=== PATIENT | male | born 1990 ===

== ENCOUNTER 2016-04-05 10:24 | Day surgery (SDC) | payer OTHER ==
[2016-04-02 11:48] LABS: HEMATOCRIT 41.6 % (37.9-51.0); HEMOGLOBIN 14.4 g/dL (13.5-17.0); HGB HCT DIFFERENCE 1.6; MEAN CORPUSCULAR HEMOGLOBIN 30.8 pg (27.0-33.4); MEAN CORPUSCULAR HGB CONC 34.5 g/dL (32.0-36.0); MEAN CORPUSCULAR VOLUME 89 fl (80-97); RED BLOOD COUNT 4.67 10^6/uL (4.35-5.55); RED CELL DISTRIBUTION WIDTH 12.8 % (11.5-14.0); WHITE BLOOD COUNT 7.7 10^3/uL (4.0-10.5)
[~2016-04-05 10:24] MED LIST: CEFAZOLIN 2 GM/D5W RTU 2 GM/50 ML RTUPB IV PRN; LACTATED RINGERS 1000 ML IV PRN; LIDOCAINE 0.5% INJ-PF (5 MG/ML) 50 ML SDV SUBCUT PRN
[2016-04-05] MEDS ORDERED: NEOSTIGMINE METHYLSULFATE 10 MG/10 ML VIAL ONE (10:26)
[2016-04-05] MEDS ORDERED: ONDANSETRON HCL INJ/PF 4 MG/2 ML SDV ONE (10:26)
[2016-04-05] MEDS ORDERED: GLYCOPYRROLATE INJ 0.4 MG/2 ML VIAL ONE (10:26)
[2016-04-05] MEDS ORDERED: DEXAMETHASONE SOD PHOSPHATE INJ 4 MG/1 ML VIAL ONE (10:26)
[2016-04-05] MEDS ORDERED: LIDOCAINE 2% INJ-PF (20 MG/ML) 10 ML AMPUL ONE ×2 (10:26→16:20)
[2016-04-05] MEDS ORDERED: SUCCINYLCHOLINE CHLORIDE INJ 200 MG/10 ML VIAL ONE (10:26)
[2016-04-05] MEDS ORDERED: KETOROLAC TROMETHAMINE 60 MG/2 ML SDV ONE (10:26)
[2016-04-05] MEDS ORDERED: ROCURONIUM BROMIDE INJ 50 MG/5 ML VIAL IV ONE (10:26)
[2016-04-05] MEDS ORDERED: BUPIVACAINE HCL 0.5 % INJ/PF 30 ML SDV ONE (10:32)
[2016-04-05] MEDS ORDERED: MIDAZOLAM 2 MG/2 ML INJ ONE (11:47)
[2016-04-05] MEDS ORDERED: FENTANYL CITRATE INJ/PF 100 MCG/2 ML AMPUL ONE ×2 (11:47→11:49)
[2016-04-05] MEDS ORDERED: PROPOFOL INJ 200 MG/20 ML VIAL IV ONE (11:48)
[2016-04-05] MEDS ORDERED: ACETAMINOPHEN 100 ML IV ONE (11:48)
[2016-04-05] MEDS ORDERED: DEXMEDETOMIDINE INJ 80 MCG/20 ML VIAL IV ONE (11:48)
[2016-04-05] MEDS ORDERED: MORPHINE SULFATE 10 MG/ML INJ ONE (11:48)
[2016-04-05] MEDS ORDERED: LIDOCAINE 0.5%/EPINEPHRINE INJ 50 ML VIAL ONE (13:37)
[2016-04-05] MEDS ORDERED: BUPIVACAINE HCL 0.25% /EPINEPHRINE INJ/PF 30 ML SDV ONE (13:40)
[2016-04-05] MEDS ORDERED: DIPHENHYDRAMINE HCL 50 MG/ML VIAL IV PRN (15:08)
[2016-04-05] MEDS ORDERED: ONDANSETRON HCL INJ/PF 4 MG/2 ML SDV IV PRN (15:08)
[2016-04-05] MEDS ORDERED: MEPERIDINE HCL/PF INJ 25 MG/1 ML DISP.SYRIN IV PRN (15:08)
[2016-04-05] MEDS ORDERED: FENTANYL CITRATE INJ/PF 100 MCG/2 ML AMPUL IV PRN ×3 (15:08)
[2016-04-05] MEDS ORDERED: RINGERS SOLUTION,LACTATED 1,000 ML IV PRN (15:08)
[2016-04-05] MEDS ORDERED: OXYCODONE-ACETAMINOPHEN 5-325 MG TABLET PO PRN ×3 (15:08)
[2016-04-05] MEDS ORDERED: MORPHINE SULFATE 10 MG/ML INJ IV PRN ×2 (15:08)
[2016-04-05] MEDS ORDERED: PROMETHAZINE HCL INJ 25 MG/1 ML VIAL IV PRN ×2 (15:08)
[2016-04-05] MEDS: HYDROMORPHONE HCL INJ/PF 2 MG/ML AMPULE ONE ×5 (15:17→15:57)
--- NOTE | 2016-04-05 16:04 | OPERATIVE REPORT E ---
Operative Report NAME: CHARLEY BLAKE : 1990 AGE: 25Y DATE OF SURGERY: 04/05/2016 ROOM: PREOPERATIVE DIAGNOSIS: Closed right fracture dislocation of the ankle. POSTOPERATIVE DIAGNOSES: 1. Closed right fracture dislocation of the ankle. 2. Fibular shaft fracture. 3. Syndesmotic disruption. PROCEDURE: 1. Open reduction and internal fixation of the right fibula. 2. Fixation of syndesmosis. SURGEON: RICHARD LAUREN M.D. BLOOD LOSS: Five mL. TOURNIQUET TIME: Seventy-two minutes. ANESTHESIA: General plus local. FINDINGS: There was a comminuted spiral fracture of the fibula. After fixation the syndesmosis was unstable on stress view. IMPLANTS: [place] fibular plate and lag screw and fibular syndesmotic screw. 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 He was closed reduced and splinted. He was seen in the office and we had a lengthy discussion regarding all of his treatment options, both nonsurgical and surgical. Risks, benefits, and alternatives to surgery were discussed with the patient, including but not limited to infection, bleeding, damage to neurovascular structures, deep venous thrombosis, , hardware failure, malunion, nonunion, and need for further surgery in the future. Patient understood all of these risks and elected to proceed with the surgery. PROCEDURE: Patient was seen in the preoperative holding area and the appropriate surgical site was marked. He was then taken to the operating room and laid supine on the operating table. IV antibiotics and general anesthesia were administered at this time. SCDs were placed on the nonoperative leg. A well padded right thigh tourniquet was placed. All of his bony prominences and neurovascular structures were well padded and protected. A time-out was performed to confirm the correct patient, procedure, and surgical site and the limb was then prepped and draped in a sterile fashion. A longitudinal incision was made overlying the fibula. Hemostasis was obtained using electrocautery. Dissection was taken down to the fibula and the periosteum was elevated at the fracture site. The fracture site was exposed and hematoma was removed from the fracture site. There was a long spiral fracture of the fibula with some comminution proximally. At this point, I obtained a provisional reduction using bone reduction clamps. I obtained fluoroscopy images that confirmed good overall alignment and reduction. At this point, I then placed a 3.5 mm lag screw across the fracture site. I removed the clamps and took imaging. This held the fracture nicely reduced and compressed at the fracture site. At this point, I then put a neutralization plate on. The fracture did spiral fairly proximal, so I had to use a long plate to get adequate purchase on both sides of the fracture site. Once adequate fixation was performed, I then took imaging and I did an external rotation stress view. The syndesmosis did widen, so at this point I placed a 3 cortical syndesmotic screw. This held the fibula in a nice anatomic position. I did perform a stress view at this point and there was no syndesmotic widening. At this point, I took the ankle through a range of motion and had excellent range of motion. At this point, I took final fluoroscopic images. I irrigated and closed the periosteum and fascial layer using 0 Vicryl, 2-0 Vicryl for skin, and a 3-0 nylon for skin. A dry sterile dressing was placed and the patient was placed in a posterior mold. The procedure went well without complication. The patient was awoken from anesthesia and transferred to the recovery room in stable condition. I was present for the entirety of the procedure. DICTATING PHYSICIAN: RICHARD LAUREN M.D. [id number] PHY#: [id number] ID: [id number] JOB#: [id number] ACCT: [id number] cc:RICHARD LAUREN M.D. >
[2016-04-05] MEDS ORDERED: ROPIVACAINE HCL 0.5% INJ/PF (5 MG/1 ML) 30 ML SDV ONE (16:19)
[2016-04-05] MEDS ORDERED: LIDOCAINE 2%/EPINEPHRINE INJ 20 ML VIAL ONE (16:19)
[2016-04-05 18:47] VITALS: BP 138/70
== END 2016-04-05 18:35 | disposition home or self-care (01) ==
LOC: OROUT 10:24
PROVIDERS: ATTEND Specialist
PROC: 0QSG04Z Reposition Right Tibia with Internal Fixation Device, Open Approach (ICD-10-PCS; 2016-04-05)
PROC: 0SHF04Z Insertion of Internal Fixation Device into Right Ankle Joint, Open Approach (ICD-10-PCS; 2016-04-05)
PROC: 0MS Bursae and Ligaments, Reposition (ICD-10-PCS; 2016-04-05)
PROC: 0QSJ04Z Reposition Right Fibula with Internal Fixation Device, Open Approach (ICD-10-PCS; principal; 2016-04-05 13:00)
DX: S82.841A Displaced bimalleolar fracture of right lower leg, initial encounter for closed fracture (principal); S93.431A Sprain of tibiofibular ligament of right ankle, initial encounter; W19.XXXA Unspecified fall, initial encounter; M25.571 Pain in right ankle and joints of right foot; Z79.1 Long term (current) use of non-steroidal anti-inflammatories (NSAID)
CPT/HCPCS: 36415; 85027; 73600; 27814; 27829; C1713 ×2; J2795; J2250; J3490 ×5; J1100; J1885; J3010; J2270; J1170; J0330; J2405; J2704; J0690; J0131; 01480